=== PATIENT | male | born 1990 | race African-American/Black ===

== ENCOUNTER 2020-07-15 11:30 | Emergency (ER) | payer MEDICARE ==
[~2020-07-15] VITALS: Ht 180.3 cm; Wt 125.0 kg
[2020-07-15] MEDS ORDERED: SODIUM CHLORIDE 0.9% 500 ML IV ONE (12:08)
[2020-07-15] MEDS ORDERED: ASPIRIN 81MG TABLET PO ONE (12:15)
[2020-07-15 12:33] LABS: HEMOGLOBIN. 14.2 g/dL (14.0-18.0); LYMPHOCYTES % 21.6 % (20.0-50.0); MEAN CORPUSCULAR HEMOGLOBIN 29.6 pg (28.0-32.0); MEAN CORPUSCULAR VOLUME 89.8 fL (80.0-94.0); MEAN PLATELET VOLUME 8.2 fl (7.4-10.4); MONOCYTES % 6.6 % (2.0-8.0); NEUTROPHILS % 69.8 % (40.0-76.0); PLATELET 410 x1000/uL (130-400); RED BLOOD CELL COUNT 4.79 mill/uL (4.7-6.1); RED CELL DISTRIBUTION WIDTH 13.9 % (11.6-14.6)
[2020-07-15 12:41] LABS: CHLORIDE 100 mEq/L (98-107)
[2020-07-15 13:04] LABS: D-DIMER 0.23 mg/L FEU (<0.50); INR 1.2; PARTIAL THROMBOPLASTIN TIME 31.6 sec (23.4-31.0); PROTHROMBIN TIME 12.3 sec (9.6-11.0)
[2020-07-15] MEDS ORDERED: CEFTRIAXONE 1 G PREMIX 50 ML IV ONE (14:00)
[2020-07-15] MEDS ORDERED: AZITHROMYCIN 500 MG TABLET PO ONE (14:00)
[2020-07-15 14:40] LABS: CLARITY URINE CLEAR (CLEAR); COLOR URINE DARK YELLOW (YELLOW); KETONES URINE TRACE (NEGATIVE); LEUKOCYTE ESTERASE URINE NEGATIVE (NEGATIVE); NITRITE URINE NEGATIVE (NEGATIVE); OCCULT BLOOD URINE NEGATIVE (NEGATIVE); PROTEIN URINE TRACE (NEGATIVE); SPECIFIC GRAVITY URINE 1.023 (1.005-1.030)
[2020-07-15] MEDS ORDERED: BUMETANIDE 1MG/4ML VIAL IV ONE (14:45)
[2020-07-15] MEDS ORDERED: CARVEDILOL 12.5MG TABLET PO ONE (14:45)
[2020-07-15 15:03] LABS: *AMPHETAMINES SCREEN URINE NEGATIVE (NEGATIVE); *BARBITURATES SCREEN URINE NEGATIVE (NEGATIVE); *BENZODIAZEPINES SCREEN URINE NEGATIVE (NEGATIVE); *COCAINE SCREEN URINE NEGATIVE (NEGATIVE)
[2020-07-15 15:04] LABS: CANNABINOID URINE SCREEN PRESUMTIVE POSITIVE (NEGATIVE); METHADONE URINE SCREEN NEGATIVE (NEGATIVE); OPIATES URINE SCREEN NEGATIVE (NEGATIVE); PHENCYCLIDINE URINE SCREEN NEGATIVE (NEGATIVE)
[2020-07-15] MEDS ORDERED: HYDRALAZINE 20MG/ML VIAL IV PRN (15:15)
[2020-07-15] MEDS ORDERED: ACETAMINOPHEN 325MG TABLET PO PRN (15:15)
[2020-07-15] MEDS ORDERED: ONDANSETRON HCL 4MG/2ML INJ IV PRN (15:15)
[2020-07-15] MEDS ORDERED: POTASSIUM CHLORIDE 20MEQ TABLET SR PO SCH (15:45)
[2020-07-15] MEDS ORDERED: RIVAROXABAN 20 MG TABLET PO SCH (17:00)
[2020-07-15] MEDS ORDERED: FUROSEMIDE 40MG/4ML VIAL IV SCH (17:15)
[2020-07-15] MEDS ORDERED: HEPARIN 5000 UNITS/ML VIAL SUBCUT SCH (21:00)
[2020-07-15 21:53] VITALS: BP 120/79
[2020-07-16] MEDS ORDERED: LOSARTAN POTASSIUM 25 MG TABLET PO SCH (15:45)
[2020-07-16] MEDS ORDERED: RIVAROXABAN 20 MG TABLET PO SCH (17:00)
[2020-07-16] MEDS ORDERED: CARVEDILOL 3.125 MG TABLET PO SCH (21:00)
== END 2020-07-15 21:53 | disposition left against medical advice (07) ==
LOC: ER 12:09 → EDBEDREQ 15:21 → ER 21:53 → CANBEDREQ 22:56
DX: I11.0 Hypertensive heart disease with heart failure (principal); I50.23 Acute on chronic systolic (congestive) heart failure; Z03.818 Encounter for observation for suspected exposure to other biological agents ruled out; A41.9 Sepsis, unspecified organism; E87.2 Acidosis; E66.01 Morbid (severe) obesity due to excess calories; Z68.38 Body mass index [BMI] 38.0-38.9, adult; E11.65 Type 2 diabetes mellitus with hyperglycemia; F12.10 Cannabis abuse, uncomplicated; D68.9 Coagulation defect, unspecified; D72.829 Elevated white blood cell count, unspecified; Z53.29 Procedure and treatment not carried out because of patient's decision for other reasons; Z79.01 Long term (current) use of anticoagulants; Z95.0 Presence of cardiac pacemaker
CPT/HCPCS: 36415; 71045; 80053; 80061; 80305; 81003; 83605; 83880; 84484; 85025; 85379; 85610; 85730; 87040; 87086; 93005; 93970; 96365; 96375; 99284; C1893; J0696; J1940; J3490; J7030; 96366